=== PATIENT | male | born 1970 | race Caucasian/White ===

== ENCOUNTER 2020-09-18 10:18 | Emergency (ER) | payer OTHER ==
[2020-09-18] MEDS ORDERED: Nitroglycerin 0.4 MG Tab.SL SL PRN (10:26)
[2020-09-18] MEDS ORDERED: Sodium Chloride 0.9% 10 ML Syringe FLUSH PRN (10:26)
[2020-09-18] MEDS ORDERED: Aspirin 81 MG Tab.Chew PO ONE (10:26)
[2020-09-18 10:59] LABS: PTT,PARTIAL THROMBOPLSTIN TIME 25.2 SEC (22.0-34.0)
[2020-09-18 11:02] LABS: ANION GAP 13.3 mEq/L (7-13); CHLORIDE,CL 105 mmol/L (98-107); SODIUM,NA 143 mmol/L (136-145)
--- NOTE | 2020-09-18 11:12 | CR ---
PROCEDURE INFORMATION: Exam: XR Chest Exam date and time: 09/18/2020 11:06 AM Age: 50 years old Clinical indication: Chest pain TECHNIQUE: Imaging protocol: XR of the chest Views: 1 view. COMPARISON: CT Chest wo Cont 09/27/2018 1:25 PM FINDINGS: Lungs: Unremarkable. No consolidation. Pleural spaces: Unremarkable. No pleural effusion. No pneumothorax. Heart/Mediastinum: Unremarkable. No cardiomegaly. Bones/joints: Unremarkable. IMPRESSION: No acute findings.
--- NOTE | 2020-09-18 11:22 | EDM.PDOC ---
Scribed by Marylou Monae 09/18/20 1105 for Josh Greenwood MD ED HPI GENERAL MEDICAL PROBLEM - General Chief Complaint: Chest Pain Stated Complaint: CHEST PAINS SHORTNESS OF BREATH Time Seen by Provider: 09/18/20 10:20 Source of Information: Reports: Patient, Old Records, RN, RN Notes Reviewed History Limitations: Reports: No Limitations - History of Present Illness INITIAL COMMENTS - FREE TEXT/NARRATIVE: Pt presents to ER from home by POV with c/o intermittent/recurrent sharp left chest pain for one and a half weeks. Pt states pain is sharp, throbbing and radiates to the L arm. Denies AK, CAD/ACS, fever, chills, cough, or injury. Admits to occasional mild shortness of breath. Pt states he was evaluated at the clinic yesterday and started on a medication for anxiety, he thinks the medication is Hydroxyzine. Pt states he also takes medication for high blood pressure. Duration: Week(s): (1.5), Intermittent, Recurring, Waxing/Waning Location: Reports: Chest Quality: Reports: Sharp, Throbbing Severity: Moderate Improves with: Reports: None Worsens with: Reports: None Associated Symptoms: Reports: No Other Symptoms Chest Pain Score (Numeric/FACES): 7 - Related Data Allergies Allergy/AdvReac Type Severity Reaction Status Date / Time No Known Allergies Allergy Verified 09/18/20 10:32 Past Medical History Cardiovascular History: Reports: Hypertension Psychiatric History: Reports: Anxiety Endocrine/Metabolic History: Reports: Obesity/BMI 30+ Social & Family History - Family History Family Medical History: No Pertinent Family History - Tobacco Use Tobacco Use Status *Q: Never Tobacco User - Living Situation & Occupation Occupation: Employed ED ROS GENERAL - Review of Systems Review Of Systems: Comprehensive ROS is negative, except as noted in HPI. ED EXAM, GENERAL - Physical Exam Exam: See Below Exam Limited By: No Limitations General Appearance: Alert, WD/WN, No Apparent Distress Nose: Normal Inspection, Normal Mucosa, No Blood Throat/Mouth: Normal Inspection, Normal Lips, Normal Teeth, Normal Gums, Normal Oropharynx, Normal Voice, No Airway Compromise Head: Atraumatic, Normocephalic Neck: Normal Inspection, Supple, Non-Tender, Full Range of Motion Respiratory/Chest: No Respiratory Distress, Lungs Clear, Normal Breath Sounds, No Accessory Muscle Use, Chest Non-Tender Cardiovascular: Normal Peripheral Pulses, Regular Rate, Rhythm, No Edema, No Gallop, No JVD, No Murmur, No Rub GI/Abdominal: Normal Bowel Sounds, Soft, Non-Tender Back Exam: Normal Inspection Extremities: Normal Inspection, Normal Range of Motion, Non-Tender, Normal Capillary Refill, No Pedal Edema Neurological: Alert, Oriented, CN II-XII Intact, Normal Cognition, Normal Gait, No Motor/Sensory Deficits Psychiatric: Normal Affect, Anxious Skin Exam: Warm, Dry, Intact, Normal Color, No Rash #1 Interpretation EKG Date: 09/18/20 Time: 10:26 Rhythm: Other (sinus rhythm) Rate (Beats/Min): 78 [place]: Normal P-Wave: Present QRS: Normal ST-T: Normal QT: Normal Course - Vital Signs Last Recorded V/S: Last Vital Signs Temp 98.3 F 09/18/20 10:37 Pulse 81 09/18/20 10:37 Resp 18 09/18/20 10:37 BP 129/73 09/18/20 10:37 Pulse Ox 100 09/18/20 10:37 - Orders/Labs/Meds Orders: Active Orders 24 hr Category Date Time Status EKG 12 Lead [EKG Documentation Completion] [RC] STAT Care 09/18/20 10:25 Active Peripheral IV Care [RC] . DIRECTED Care 09/18/20 10:26 Active Chest 1V Frontal [CR] Stat Exams 09/18/20 10:25 Taken Nitroglycerin [Nitrostat] Med 09/18/20 10:26 Active 0.4 mg SL Q5M PRN Sodium Chloride 0.9% [Saline Flush] Med 09/18/20 10:26 Active 10 ml FLUSH ASDIRECTED PRN Peripheral IV Insertion Adult [OM.PC] Stat Oth 09/18/20 10:25 Ordered Medication Orders Nitroglycerin (Nitrostat) 0.4 mg SL Q5M PRN PRN Reason: Chest Pain Last Admin: 09/18/20 10:36 Dose: 0.4 mg Documented by: JINA Sodium Chloride (Saline Flush) 10 ml FLUSH ASDIRECTED PRN PRN Reason: Keep Vein Open Last Admin: 09/18/20 10:31 Dose: 10 ml Documented by: JINA Labs: Laboratory Tests 09/18/20 09/18/20 09/18/20 Range/Units 10:33 10:33 10:33 WBC 5.5 (5.0-10.0) 10^3/uL RBC 4.80 (4.6-6.2) 10^6/uL Hgb 15.5 (14.0-18.0) g/dL Hct 45.0 (40.0-54.0) % MCV 93.8 (80-100) fL MCH 32.3 (27.0-34.0) pg MCHC 34.4 (33.0-35.0) g/dL Plt Count 221 (150-450) 10^3/uL Neut % (Auto) 67.2 (42.2-75.2) % Lymph % (Auto) 21.7 (20.5-50.1) % [place] % (Auto) 7.8 (2-8) % Eos % (Auto) 2.9 (1.0-3.0) % Baso % (Auto) 0.4 (0.0-1.0) % PT 10.2 (9.0-12.0) SEC INR 1.1 (0.9-1.2) APTT 25.2 (22.0-34.0) SEC D-Dimer, Quantitative < 100 (0-400) ng/mL Sodium 143 (136-145) mmol/L Potassium 4.3 (3.5-5.1) mmol/L Chloride 105 (98-107) mmol/L Carbon Dioxide 29 (21-32) mmol/L Anion Gap 13.3 H (7-13) mEq/L BUN 16 (7-18) mg/dL Creatinine 1.00 (0.70-1.30) mg/dL Est Cr Clr Drug Dosing 93.08 mL/min Estimated GFR (MDRD) > 60 BUN/Creatinine Ratio 16.0 (No establ ref range) Glucose 102 H (74-99) mg/dL Calcium 8.5 (8.5-10.1) mg/dL Total Bilirubin 0.9 (0.2-1.0) mg/dL AST 18 (15-37) U/L ALT 57 (16-63) U/L Alkaline Phosphatase 78 (46-116) U/L Troponin I < 0.017 (0.000-0.056) ng/mL B-Natriuretic Peptide < 5 (0-100) pg/ml Total Protein 7.0 (6.4-8.2) g/dL Albumin 4.2 (3.4-5.0) g/dL Globulin 2.8 Albumin/Globulin Ratio 1.5 Meds: Medications Generic Name Dose Route Start Last Admin Trade Name Freq PRN Reason Stop Dose Admin Nitroglycerin 0.4 mg 09/18/20 10:26 09/18/20 10:36 Nitrostat SL 0.4 mg Q5M PRN Administration Chest Pain Sodium Chloride 10 ml 09/18/20 10:26 09/18/20 10:31 Saline Flush FLUSH 10 ml ASDIRECTED PRN Administration Keep Vein Open Discontinued Medications Generic Name Dose Route Start Last Admin Trade Name Freq PRN Reason Stop Dose Admin Aspirin 324 mg 09/18/20 10:26 09/18/20 10:31 Aspirin PO 09/18/20 10:27 324 mg ONETIME ONE Administration - Radiology Interpretation Free Text/Narrative:: [facility] Final Radiology Report Call: [phone] assistance Online chat: [email or web address] Name: ESEQUIEL BENJAMIN Age: 50Years M Date: 09/18/2020 SSN: -- : [id number] Study: CR CHEST 1V FRONTAL Requesting Physician: JOSH GREENWOOD Images: 1 Addl Studies: Provided Clinical History: chest pain Contrast: Contrast Medium: Contrast Amount: Contrast Method: CONFIDENTIALITY STATEMENT This report is intended only for use by the referring physician, and only in accordance with law. If you received this in error, call [phone]. Page 1 of 1 PROCEDURE INFORMATION: Exam: XR Chest Exam date and time: 09/18/2020 11:06 AM Age: 50 years old Clinical indication: Chest pain TECHNIQUE: Imaging protocol: XR of the chest Views: 1 view. COMPARISON: CT Chest wo Cont 09/27/2018 1:25 PM FINDINGS: Lungs: Unremarkable. No consolidation. Pleural spaces: Unremarkable. No pleural effusion. No pneumothorax. Heart/Mediastinum: Unremarkable. No cardiomegaly. Bones/joints: Unremarkable. IMPRESSION: No acute findings. Thank you for allowing us to participate in the care of your patient. Dictated and Authenticated by: Leora Neil MD 09/18/2020 11:11 AM Central Time ([place] & [place]) - Re-Assessments/Exams Free Text/Narrative Re-Assessment/Exam: 09/18/20 11:06 No improvement with NTG. Free Text/Narrative Re-Assessment/Exam: 09/18/20 11:09 Pt has ruled himself out time-quintana with one and a half weeks of chest pain. His labs, including Troponin, and D-dimer are normal, as is the chest x-ray. Plan to d/c pt to home with instructions to f/u in clinic next week and to return to the ER if the pain worsens or if new symptoms develop. Departure - Departure Time of Disposition: 11:20 Disposition: Home, Self-Care 01 Condition: Good Clinical Impression: Atypical chest pain Instructions: Nonspecific Chest Pain, Adult Forms: ED Department Discharge Additional Instructions: Follow up clinic next week for recheck, and consideration of a cardiac stress test. Return to the ER if you develop any new or concerning symptoms, or if the chest pain worsens. Sepsis Event Note (ED) - Focused Exam Vital Signs: Vital Signs Temp Pulse Resp BP BP Pulse Ox 09/18/20 10:37 98.3 F 81 18 129/73 100 09/18/20 10:36 117/72 - My Orders Last 24 Hours: My Active Orders 09/18/20 10:25 EKG 12 Lead [EKG Documentation Completion] [RC] STAT Chest 1V Frontal [CR] Stat Peripheral IV Insertion Adult [OM.PC] Stat 09/18/20 10:26 Peripheral IV Care [RC] . DIRECTED Nitroglycerin [Nitrostat] 0.4 mg SL Q5M PRN Sodium Chloride 0.9% [Saline Flush] 10 ml FLUSH ASDIRECTED PRN - Assessment/Plan Last 24 Hours: My Active Orders 09/18/20 10:25 EKG 12 Lead [EKG Documentation Completion] [RC] STAT Chest 1V Frontal [CR] Stat Peripheral IV Insertion Adult [OM.PC] Stat 09/18/20 10:26 Peripheral IV Care [RC] . DIRECTED Nitroglycerin [Nitrostat] 0.4 mg SL Q5M PRN Sodium Chloride 0.9% [Saline Flush] 10 ml FLUSH ASDIRECTED PRN I have read and agree with the documentation that has been completed regarding this visit. By signing this record, I attest that the documentation was completed in my physical presence and is an accurate record of the encounter.
== END 2020-09-18 11:35 | disposition home or self-care (01) ==
LOC: DL.ED 10:18
DX: R07.89 Other chest pain (principal); I10 Essential (primary) hypertension; E66.9 Obesity, unspecified; Z68.37 Body mass index [BMI] 37.0-37.9, adult
CPT/HCPCS: 36415; 71045; 80053; 83880; 84484; 85025; 85379; 85610; 85730; 93005; 93010; 99284; 99285; A9270

== ENCOUNTER 2020-11-16 14:23 | Emergency (ER) | payer OTHER ==
--- NOTE | 2020-11-16 14:52 | CT ---
EXAMINATION: Head wo Cont SEX: Male AGE: 50 years CLINICAL HISTORY: 50-year-old male with syncopal episode and now confusion. No comparison exams. Scan technique: Volume acquisition of data emergency unenhanced CT scan of the head and brain obtained with the patient lying supine on the Siemens multislice scanner [place], [place]. All data archived in the PACS system for storage, reformatting axial/sagittal/coronal planes and study. Interpretation: 1. Uniformly thick bony calvarium. No sign of skull fracture, underlying brain contusion or epidural/subdural hematoma. 2. Asymmetric prominent arachnoid cyst in the right temporal fossa. 3. Symmetric clear pneumatization of the paranasal and mastoid sinuses. No foreign bodies. Nasal septum midline. 4. Physiologic midline pineal calcification. Air image normal ventricular system. No midline shifts. 5. No supratentorial or posterior fossa mass lesion. Cerebellum and brainstem unremarkable. 6. No ischemic infarcts or signs of encephalomalacia. 7. No sign of acute intracerebral, intraventricular or subarachnoid bleed. CONCLUSION: No sign of skull fracture or closed head trauma. Incidental arachnoid cyst right temporal fossa.
--- NOTE | 2020-11-16 14:54 | CR ---
EXAMINATION: Chest 1V Frontal SEX: Male AGE: 50 years CLINICAL HISTORY: 50-year-old confused male who had a syncopal episode. Negative head CT. Chest pain. INTERPRETATION: 1. No new cardiopulmonary abnormality when compared to exam 18 September 2020. 2. Normal cardiac silhouette (size and configuration). External quality assurance monitor leads. No pulmonary vascular congestion, alveolar edema or dependent pleural effusion. 3. No new lung mass or hilar lymphadenopathy. 4. No alveolar consolidation, air bronchograms or peripheral "groundglass" interstitial lung densities. No atelectasis. 5. No pneumothorax or pneumomediastinum.
--- NOTE | 2020-11-16 15:03 | EDM.PDOC ---
ED HPI GENERAL MEDICAL PROBLEM - General Chief Complaint: Chest Pain Stated Complaint: [id number] TROUBLE BREATHING DIZZY BLACK OUT CHEST Time Seen by Provider: 11/16/20 14:52 Source of Information: Reports: Patient, Old Records, RN, RN Notes Reviewed History Limitations: Reports: No Limitations - History of Present Illness INITIAL COMMENTS - FREE TEXT/NARRATIVE: Vik is a 50 y/o male with history of hypertension, Flores's lung, insomnia, and depression, who presents to the ED via personal vehicle with complaints of general malaise, syncope, worsening shortness of breath, and persistent chest pain. The patient states his symptoms of malaise and cold sweats began yesterday evening. He does not feel this symptom has worsened, but he does report one bout of emesis last evening and one bout today. He report multiple bouts of syncope which began last night shortly before his first bout of emesis; he notes most of these events occur when making gross position changes such as sitting to standing. He denies fever, vision changes, headache, cough, sore throat, palpitations, hematemesis, dyspepsia, dysuria, hematuria, melena, or hematochezia. He does attest to transient bilateral lower abdominal pain and occasional constipation/diarrhea. He has taken one dose of albuterol via inhaler for his shortness of breath which has offered him [id number] alleviation. He denies active chest pain. - Related Data Allergies Allergy/AdvReac Type Severity Reaction Status Date / Time No Known Allergies Allergy Verified 09/18/20 10:32 Home Meds: Home Meds Albuterol Sulfate [Albuterol Sulfate Hfa] 8.5 gm IH Q4HR PRN 11/16/20 [History] Propranolol [Inderal] 40 mg PO BID 11/16/20 [History] Venlafaxine HCl 100 mg PO TID 11/16/20 [History] traZODone HCl [Trazodone HCl] 100 mg PO TID 11/16/20 [History] Past Medical History Cardiovascular History: Reports: Hypertension Psychiatric History: Reports: Anxiety Social & Family History - Caffeine Use Caffeine Use: Reports: None ED ROS GENERAL - Review of Systems Review Of Systems: Comprehensive ROS is negative, except as noted in HPI. ED EXAM, GENERAL - Physical Exam Exam: See Below Exam Limited By: No Limitations General Appearance: Alert, Anxious Eye Exam: Bilateral Eye: EOMI, Nystagmus (Jerky nystagmus), PERRL (4mm), Vision Changes (Blurry vision and photophobia during assesment) Ears: Normal External Exam, Normal Canal, Hearing Grossly Normal, Normal TMs Ear Exam: Bilateral Ear: Auricle Normal, Canal Normal, TM normal Nose: Normal Inspection, Normal Mucosa, No Blood Throat/Mouth: Normal Inspection, Normal Oropharynx, Normal Voice, No Airway Compromise Head: Atraumatic, Normocephalic Neck: Normal Inspection, Supple, Non-Tender, Full Range of Motion. No: Lymphadenopathy (L), Lymphadenopathy (R) Respiratory/Chest: No Respiratory Distress, Lungs Clear, Normal Breath Sounds, No Accessory Muscle Use, Chest Non-Tender. No: Crackles, Rales, Rhonchi, Wheezing Cardiovascular: Normal Peripheral Pulses, Regular Rate, Rhythm, No Edema, No Gallop, No JVD, No Murmur, No Rub Peripheral Pulses: 2+: Radial (L), Radial (R) GI/Abdominal: Normal Bowel Sounds, Soft, No Distention, No Mass, Pelvis Stable, Tender (To palpation of LLQ) (Male) Exam: Deferred Rectal (Males) Exam: Deferred Back Exam: Normal Inspection, Full Range of Motion, CVA Tenderness (L), CVA Tenderness (R) Extremities: Normal Inspection, Normal Range of Motion, Non-Tender, Normal Capillary Refill, No Pedal Edema Neurological: Alert, Oriented, CN II-XII Intact, Normal Cognition, No Motor/Sensory Deficits Psychiatric: Anxious Skin Exam: Warm, Dry, Intact, Normal Color, No Rash. No: Ecchymosis, Erythema, Jaundice, Mottled, Pallor, Petechiae #1 Interpretation EKG Date: 11/16/20 Time: 14:45 Rhythm: NSR Rate (Beats/Min): 69 [place]: Normal P-Wave: Present QRS: Normal ST-T: Normal QT: Normal Comparison: No Change EKG Interpretation Comments: NSR; q-wave in III; No evidence of acute myocardial ischemia Course - Vital Signs Last Recorded V/S: Last Vital Signs Temp 97.1 F 11/16/20 17:45 Pulse 66 11/16/20 17:45 Resp 16 11/16/20 17:45 BP 143/89 H 11/16/20 17:45 Pulse Ox 99 11/16/20 17:45 Orthostatic Blood Pressure [ 152/101 Standing] Orthostatic Blood Pressure [ 141/97 Sitting] Orthostatic Blood Pressure [ 143/89 Supine] - Orders/Labs/Meds Labs: Laboratory Tests 11/16/20 11/16/20 11/16/20 Range/Units 14:34 14:34 14:34 WBC 4.0 L (5.0-10.0) 10^3/uL RBC 4.62 (4.6-6.2) 10^6/uL Hgb 14.5 (14.0-18.0) g/dL Hct 42.5 (40.0-54.0) % MCV 92.0 (80-100) fL MCH 31.4 (27.0-34.0) pg MCHC 34.1 (33.0-35.0) g/dL Plt Count 224 (150-450) 10^3/uL Neut % (Auto) 57.4 (42.2-75.2) % Lymph % (Auto) 29.5 (20.5-50.1) % Rogers % (Auto) 8.4 H (2-8) % Eos % (Auto) 4.2 H (1.0-3.0) % Baso % (Auto) 0.5 (0.0-1.0) % Sodium 141 (136-145) mmol/L Potassium 3.7 (3.5-5.1) mmol/L Chloride 105 (98-107) mmol/L Carbon Dioxide 28 (21-32) mmol/L Anion Gap 11.7 (7-13) mEq/L BUN 21 H (7-18) mg/dL Creatinine 1.02 (0.70-1.30) mg/dL Est Cr Clr Drug Dosing TNP Estimated GFR (MDRD) > 60 BUN/Creatinine Ratio 20.6 (No establ ref range) Glucose 104 H (70-99) mg/dL POC Glucose (70-99) mg/dL Lactic Acid 1.7 (0.4-2.0) mmol/L Calcium 8.3 L (8.5-10.1) mg/dL Total Bilirubin 0.8 (0.2-1.0) mg/dL AST 15 (15-37) U/L ALT 39 (16-63) U/L Alkaline Phosphatase 79 (46-116) U/L Troponin I < 0.017 (0.000-0.056) ng/mL C-Reactive Protein 0.3 (0.0-0.9) mg/dL Total Protein 6.2 L (6.4-8.2) g/dL Albumin 3.7 (3.4-5.0) g/dL Globulin 2.5 Albumin/Globulin Ratio 1.5 Urine Color (YELLOW) Urine Appearance (CLEAR) Urine pH (5.0-9.0) Ur Specific [place] (1.005-1.030) Urine Protein (NEGATIVE) Urine Glucose (UA) (NEGATIVE) Urine Ketones (NEGATIVE) Urine Occult Blood (NEGATIVE) Urine Nitrite (NEGATIVE) Urine Bilirubin (NEGATIVE) Urine Urobilinogen (0.2-1.0) mg/dL Ur Leukocyte Esterase (NEGATIVE) Urine Opiates Screen (NEGATIVE) Ur Oxycodone Screen (NEGATIVE) Urine Methadone Screen (NEGATIVE) Ur Barbiturates Screen (NEGATIVE) U Tricyclic Antidepress (NEGATIVE) Ur Phencyclidine Scrn (NEGATIVE) Ur Amphetamine Screen (NEGATIVE) U Methamphetamines Scrn (NEGATIVE) Urine MDMA Screen (NEGATIVE) U Benzodiazepines Scrn (NEGATIVE) Urine Cocaine Screen (NEGATIVE) U Marijuana (THC) Screen (NEGATIVE) Ethyl Alcohol < 3 (0) mg/dL Influenza Type A RNA (NEGATIVE) Influenza Type B RNA (NEGATIVE) SARS-CoV-2 RNA (RAJIV) (NEGATIVE) 11/16/20 11/16/20 11/16/20 Range/Units 14:34 15:30 16:00 WBC (5.0-10.0) 10^3/uL RBC (4.6-6.2) 10^6/uL Hgb (14.0-18.0) g/dL Hct (40.0-54.0) % MCV (80-100) fL MCH (27.0-34.0) pg MCHC (33.0-35.0) g/dL Plt Count (150-450) 10^3/uL Neut % (Auto) (42.2-75.2) % Lymph % (Auto) (20.5-50.1) % Rogers % (Auto) (2-8) % Eos % (Auto) (1.0-3.0) % Baso % (Auto) (0.0-1.0) % Sodium (136-145) mmol/L Potassium (3.5-5.1) mmol/L Chloride (98-107) mmol/L Carbon Dioxide (21-32) mmol/L Anion Gap (7-13) mEq/L BUN (7-18) mg/dL Creatinine (0.70-1.30) mg/dL Est Cr Clr Drug Dosing Estimated GFR (MDRD) BUN/Creatinine Ratio (No establ ref range) Glucose (70-99) mg/dL POC Glucose 109 H (70-99) mg/dL Lactic Acid (0.4-2.0) mmol/L Calcium (8.5-10.1) mg/dL Total Bilirubin (0.2-1.0) mg/dL AST (15-37) U/L ALT (16-63) U/L Alkaline Phosphatase (46-116) U/L Troponin I (0.000-0.056) ng/mL C-Reactive Protein (0.0-0.9) mg/dL Total Protein (6.4-8.2) g/dL Albumin (3.4-5.0) g/dL Globulin Albumin/Globulin Ratio Urine Color Yellow (YELLOW) Urine Appearance Clear (CLEAR) Urine pH 7.5 (5.0-9.0) Ur Specific [place] 1.020 (1.005-1.030) Urine Protein Negative (NEGATIVE) Urine Glucose (UA) Negative (NEGATIVE) Urine Ketones Negative (NEGATIVE) Urine Occult Blood Negative (NEGATIVE) Urine Nitrite Negative (NEGATIVE) Urine Bilirubin Negative (NEGATIVE) Urine Urobilinogen 0.2 (0.2-1.0) mg/dL Ur Leukocyte Esterase Negative (NEGATIVE) Urine Opiates Screen (NEGATIVE) Ur Oxycodone Screen (NEGATIVE) Urine Methadone Screen (NEGATIVE) Ur Barbiturates Screen (NEGATIVE) U Tricyclic Antidepress (NEGATIVE) Ur Phencyclidine Scrn (NEGATIVE) Ur Amphetamine Screen (NEGATIVE) U Methamphetamines Scrn (NEGATIVE) Urine MDMA Screen (NEGATIVE) U Benzodiazepines Scrn (NEGATIVE) Urine Cocaine Screen (NEGATIVE) U Marijuana (THC) Screen (NEGATIVE) Ethyl Alcohol (0) mg/dL Influenza Type A RNA Negative (NEGATIVE) Influenza Type B RNA Negative (NEGATIVE) SARS-CoV-2 RNA (RAJIV) Negative (NEGATIVE) 05/04/21 Range/Units 16:00 WBC (5.0-10.0) 10^3/uL RBC (4.6-6.2) 10^6/uL Hgb (14.0-18.0) g/dL Hct (40.0-54.0) % MCV (80-100) fL MCH (27.0-34.0) pg MCHC (33.0-35.0) g/dL Plt Count (150-450) 10^3/uL Neut % (Auto) (42.2-75.2) % Lymph % (Auto) (20.5-50.1) % Rogers % (Auto) (2-8) % Eos % (Auto) (1.0-3.0) % Baso % (Auto) (0.0-1.0) % Sodium (136-145) mmol/L Potassium (3.5-5.1) mmol/L Chloride (98-107) mmol/L Carbon Dioxide (21-32) mmol/L Anion Gap (7-13) mEq/L BUN (7-18) mg/dL Creatinine (0.70-1.30) mg/dL Est Cr Clr Drug Dosing Estimated GFR (MDRD) BUN/Creatinine Ratio (No establ ref range) Glucose (70-99) mg/dL POC Glucose (70-99) mg/dL Lactic Acid (0.4-2.0) mmol/L Calcium (8.5-10.1) mg/dL Total Bilirubin (0.2-1.0) mg/dL AST (15-37) U/L ALT (16-63) U/L Alkaline Phosphatase (46-116) U/L Troponin I (0.000-0.056) ng/mL C-Reactive Protein (0.0-0.9) mg/dL Total Protein (6.4-8.2) g/dL Albumin (3.4-5.0) g/dL Globulin Albumin/Globulin Ratio Urine Color (YELLOW) Urine Appearance (CLEAR) Urine pH (5.0-9.0) Ur Specific [place] (1.005-1.030) Urine Protein (NEGATIVE) Urine Glucose (UA) (NEGATIVE) Urine Ketones (NEGATIVE) Urine Occult Blood (NEGATIVE) Urine Nitrite (NEGATIVE) Urine Bilirubin (NEGATIVE) Urine Urobilinogen (0.2-1.0) mg/dL Ur Leukocyte Esterase (NEGATIVE) Urine Opiates Screen Negative (NEGATIVE) Ur Oxycodone Screen Negative (NEGATIVE) Urine Methadone Screen Negative (NEGATIVE) Ur Barbiturates Screen Negative (NEGATIVE) U Tricyclic Antidepress Negative (NEGATIVE) Ur Phencyclidine Scrn Negative (NEGATIVE) Ur Amphetamine Screen Negative (NEGATIVE) U Methamphetamines Scrn Negative (NEGATIVE) Urine MDMA Screen Negative (NEGATIVE) U Benzodiazepines Scrn Negative (NEGATIVE) Urine Cocaine Screen Negative (NEGATIVE) U Marijuana (THC) Screen Negative (NEGATIVE) Ethyl Alcohol (0) mg/dL Influenza Type A RNA (NEGATIVE) Influenza Type B RNA (NEGATIVE) SARS-CoV-2 RNA (RAJIV) (NEGATIVE) Meds: Medications Discontinued Medications Generic Name Dose Route Start Last Admin Trade Name Freq PRN Reason Stop Dose Admin Ketorolac Tromethamine 30 mg 11/16/20 17:26 11/16/20 17:43 Ketorolac 30 Mg/Ml Sdv IM 11/16/20 17:27 30 mg ONETIME ONE Administration - Re-Assessments/Exams Free Text/Narrative Re-Assessment/Exam: 11/16/20 CT head w/o obtained due to syncope; CXR obtained d/t transient chest pain and shortness of breath. EKG revealed NSR with no evidence of acute myocardial ischemia; Troponin WNL. CBC unremarkable for acute processes; no evidence of infection or anemia. CMP appropriate; kidney function, liver function, and electrolytes WNL. UA unremarkable. Tox screen and ETOH negative. COVID and Influenza negative. Head CT revealed incidental finding of right temporal cyst with no other acute processes; no mass effect or midline shift. Case discussed with Dr. Licea, neurosurgeon from [facility] in [place], who stated given location and size of cyst it is not likely the cause of his symptoms; he suggests and OP MRI and will see patient in clinic later this week. Discussed this plan of care with family, who state concerns about taking patient home d/t frequency of syncopal episodes and persistent dizziness. Chemistry Lab Instructor spoke with [facility] for potential transfer for observation given ongoing symptoms; [facility] states they are currently on diversion for gen/med due to staffing. Case presented to [facility] who are also on diversion. Case presented to [facility] to Dr. Moreau, emergency room physician, who kindly agreed to accept patient for transfer. Discussed plan with patient and who verbalized understanding and agreement with the plan of care. Departure - Departure Time of Disposition: 18:24 Disposition: DC/Tfer to Acute Hospital 02 Reason for Transfer *Q: Primary PCI Indicated Condition: Good Clinical Impression: Dizziness, Brain cyst Syncope Qualifiers: Syncope type: unspecified Qualified Code(s): R55 - Syncope and collapse Headache Qualifiers: Headache type: unspecified Headache chronicity pattern: chronic headache Intractability: not intractable Qualified Code(s): R51.9 - Headache, unspecified Referrals: PCP,None [Primary Care Provider] - Forms: ED Department Discharge, Interfacility Transfer EMMY Sepsis Event Note (ED) - Focused Exam Vital Signs: Vital Signs Temp Pulse Resp BP Pulse Ox 11/16/20 17:45 97.1 F 66 16 143/89 H 99 11/16/20 14:37 98.5 F 75 16 136/88 100
[2020-11-16 15:06] LABS: ANION GAP 11.7 mEq/L (7-13); CHLORIDE,CL 105 mmol/L (98-107); SODIUM,NA 141 mmol/L (136-145)
[2020-11-16 16:12] LABS: CORONAVIRUS COVID-19 NAA NEGATIVE (NEGATIVE)
[2020-11-16] MEDS ORDERED: Ketorolac 30 MG/ML SDV IM ONE (17:26)
== END 2020-11-16 18:32 ==
LOC: DL.ED 14:23
DX: G93.0 Cerebral cysts (principal); R55 Syncope and collapse; R42 Dizziness and giddiness; R51.9 Headache, unspecified; Z20.822 Contact with and (suspected) exposure to COVID-19
CPT/HCPCS: 0240U; 36415; 70450; 71045; 80053; 80305-QW; 80307; 81003; 82947; 83605; 84484; 85025; 86140; 93005; 93010; 96372; 99285; 99285-25; J1885